=== PATIENT | female | born 1940 | race Caucasian/White ===

== ENCOUNTER 2021-02-17 16:18 | Inpatient (IN) | payer MEDICARE, MEDICAID ==
[~2021-02-17] VITALS: Ht 165.1 cm; Wt 89.0 kg
[2021-02-17] MEDS ORDERED: IOHEXOL-350 100 ML BOTTLE ONE (17:19)
[2021-02-17 17:31] LABS: BASOPHILS % 0.4 % (0.0-2.0); EOSINOPHILS % 2.5 % (0.0-5.0); HEMATOCRIT. 33.7 % (36.0-48.0); LYMPHOCYTES % 22.6 % (20.0-50.0); MEAN CORPUSCULAR HEMOGLOBIN 28.1 pg (28.0-32.0); MEAN CORPUSCULAR VOLUME 85.9 fL (81.0-99.0); MEAN PLATELET VOLUME 9.3 fl (7.4-10.4); MONOCYTES % 14.1 % (2.0-8.0); NEUTROPHILS % 60.4 % (40.0-76.0); PLATELET 107 x1000/uL (130-400); RED BLOOD CELL COUNT 3.92 mill/uL (4.2-5.4); RED CELL DISTRIBUTION WIDTH 17.3 % (11.6-14.6)
[2021-02-17 17:34] LABS: CHLORIDE 102 mEq/L (98-107)
[2021-02-17 17:38] LABS: ETHANOL BLOOD < 10 mg/dL; INR 1.2; PROTHROMBIN TIME 12.4 sec (9.6-11.0)
[2021-02-17 20:38] LABS: CLARITY URINE CLEAR (CLEAR); COLOR URINE YELLOW (YELLOW); KETONES URINE NEGATIVE (NEGATIVE); LEUKOCYTE ESTERASE URINE NEGATIVE (NEGATIVE); NITRITE URINE NEGATIVE (NEGATIVE); OCCULT BLOOD URINE NEGATIVE (NEGATIVE); PH URINE 6.5 (4.5-8.0); PROTEIN URINE NEGATIVE (NEGATIVE); SPECIFIC GRAVITY URINE 1.034 (1.005-1.030); UROBILINOGEN URINE 0.2 E.U./dL (0.2-1.0)
[2021-02-17 20:46] LABS: *BARBITURATES SCREEN URINE NEGATIVE (NEGATIVE)
[2021-02-17 20:47] LABS: *AMPHETAMINES SCREEN URINE NEGATIVE (NEGATIVE); *BENZODIAZEPINES SCREEN URINE NEGATIVE (NEGATIVE); *COCAINE SCREEN URINE NEGATIVE (NEGATIVE); CANNABINOID URINE SCREEN PRESUMTIVE POSITIVE (NEGATIVE); METHADONE URINE SCREEN NEGATIVE (NEGATIVE); OPIATES URINE SCREEN NEGATIVE (NEGATIVE); PHENCYCLIDINE URINE SCREEN NEGATIVE (NEGATIVE)
[2021-02-17] MEDS ORDERED: ASPIRIN 325MG EC TABLET PO NR (21:30)
[2021-02-17 22:33] VITALS: BP 159/70
[2021-02-18] VITALS: BP 159/70
[2021-02-18] MEDS ORDERED: LOSA25TA26 MT (00:13)
[2021-02-18] MEDS ORDERED: LYR25 MT (00:13)
[2021-02-18] MEDS ORDERED: PRIM50TA31 PO (00:13)
[2021-02-18] MEDS ORDERED: GABA-533 MT (00:13)
[2021-02-18] MEDS ORDERED: LEVO25TA7 MT (00:13)
[2021-02-18] MEDS ORDERED: FERR325T6 MT (00:13)
[2021-02-18] MEDS ORDERED: PREG50CA MT (00:13)
[2021-02-18] MEDS ORDERED: DULO20CA18 MT (00:13)
[2021-02-18] MEDS ORDERED: ROPI1TAB14 PO (00:13)
[2021-02-18] MEDS ORDERED: ACETAMINOPHEN 650MG/20.3ML UDC PO PRN (00:45)
[2021-02-18] MEDS ORDERED: CLONIDINE 0.1MG TABLET PO PRN (00:45)
[2021-02-18] MEDS ORDERED: DEXTROSE 50% WATER 50ML SYRINGE IV PRN (00:45)
[2021-02-18] MEDS ORDERED: ONDANSETRON HCL 4MG/2ML INJ IV PRN (00:45)
[2021-02-18] MEDS ORDERED: HYDROCODONE/ACETAMINOPHEN 5/325MG TABLET PO PRN (00:45)
[2021-02-18] MEDS ORDERED: NALOXONE HCL 0.4MG/ML VIAL IV PRN (01:00)
[2021-02-18 04:00] VITALS: BP 148/82
[2021-02-18] MEDS: BLOOD SUGAR DIAGNOSTIC STRIP TEST SCH ×4 (05:40→21:00)
[2021-02-18] MEDS: INSULIN LISPRO 100 UNITS/ML SUBCUT SCH ×4 (07:10→21:00)
[2021-02-18 08:00] VITALS: BP 152/76
[2021-02-18] MEDS: ENOXAPARIN 40MG/0.4ML SYR SUBCUT SCH (09:21)
[2021-02-18] MEDS: ASPIRIN 81MG TABLET PO SCH (09:21)
[2021-02-18 10:33] LABS: BASOPHILS % 0.5 % (0.0-2.0); EOSINOPHILS % 5.1 % (0.0-5.0); HEMATOCRIT. 35.3 % (36.0-48.0); HEMOGLOBIN. 11.4 g/dL (12.0-16.0); LYMPHOCYTES % 34.2 % (20.0-50.0); MEAN CORPUSCULAR HEMOGLOBIN 27.9 pg (28.0-32.0); MEAN CORPUSCULAR VOLUME 86.2 fL (81.0-99.0); MEAN PLATELET VOLUME 9.6 fl (7.4-10.4); MONOCYTES % 10.4 % (2.0-8.0); NEUTROPHILS % 49.8 % (40.0-76.0); PLATELET 108 x1000/uL (130-400); RED BLOOD CELL COUNT 4.09 mill/uL (4.2-5.4)
[2021-02-18 10:36] LABS: CHLORIDE 107 mEq/L (98-107)
[2021-02-18 10:44] LABS: HDL CHOLESTEROL 55 mg/dL (40-59)
[2021-02-18 10:46] LABS: LDL CHOLESTEROL 66 mg/dL (5-100)
[2021-02-18 10:47] LABS: CREATINE KINASE 76 IU/L (26-192); CREATINE KINASE 78 IU/L (26-192)
[2021-02-18 10:52] LABS: CREATINE KINASE MB FRACTION 1.1 ng/mL (0.5-3.6)
[2021-02-18 12:00] VITALS: BP 153/77
[2021-02-18 16:00] VITALS: BP 152/68
[2021-02-18 17:28] LABS: CREATINE KINASE MB FRACTION 1.2 ng/mL (0.5-3.6)
[2021-02-18 20:00] VITALS: BP 156/85
[2021-02-18] MEDS ORDERED: ATORVASTATIN CALCIUM 10MG TABLET PO SCH (21:00)
[2021-02-19] VITALS: BP 158/79
[2021-02-19 04:00] VITALS: BP 136/71
[2021-02-19] MEDS: BLOOD SUGAR DIAGNOSTIC STRIP TEST SCH ×3 (06:36→16:38)
[2021-02-19] MEDS: INSULIN LISPRO 100 UNITS/ML SUBCUT SCH ×3 (06:37→17:34)
[2021-02-19 08:00] VITALS: BP 155/66
[2021-02-19] MEDS: ASPIRIN 81MG TABLET PO SCH (08:54)
[2021-02-19] MEDS: ENOXAPARIN 40MG/0.4ML SYR SUBCUT SCH (08:54)
[2021-02-19] MEDS ORDERED: CLOPIDOGREL 75MG TABLET PO SCH (09:00)
[2021-02-19 12:00] VITALS: BP 132/60
[2021-02-19 16:00] VITALS: BP 142/67
[2021-02-19] MEDS ORDERED: ASPI-1160 PO (18:39)
[2021-02-19] MEDS ORDERED: CLOP75TA15 PO (18:39)
[2021-02-19] MEDS ORDERED: ATOR10TA PO (18:39)
[2021-02-19] MEDS ORDERED: METF-414 MT (18:39)
[2021-02-19 18:41] VITALS: BP 132/66
== END 2021-02-19 20:09 | disposition home health service (06) | DRG 69 ==
LOC: ER 16:18 → 7EST 19:08 → EDBEDREQSVC 19:13 → EDBEDREQ 19:13 → ENRESERVDT 20:51 → ENRESERVTM 20:51
PROVIDERS: ADMIT Internal Medicine; ATTEND Internal Medicine
PROC: 4A10X4Z Monitoring of Central Nervous Electrical Activity, External Approach (ICD-10-PCS; principal; 2021-02-19)
DX: G45.9 Transient cerebral ischemic attack, unspecified (principal); R47.01 Aphasia; E11.9 Type 2 diabetes mellitus without complications; R13.10 Dysphagia, unspecified; R29.705 NIHSS score 5; I34.0 Nonrheumatic mitral (valve) insufficiency; I11.9 Hypertensive heart disease without heart failure; G31.9 Degenerative disease of nervous system, unspecified; R63.5 Abnormal weight gain; Z68.32 Body mass index [BMI] 32.0-32.9, adult
CPT/HCPCS: 36415; 70496; 70498; 70551; 71045; 80048; 80053; 80061; 80305; 80320; 81003; 82550; 82553; 82962; 83036; 84443; 84484; 85025; 93005; 93306; 95816; 97162; 99285; J1650; J1815; Q9967; G0480

== ENCOUNTER 2022-03-06 13:40 | Inpatient (IN) | payer MEDICARE, MEDICAID ==
[~2022-03-06] VITALS: Ht 160 cm; Wt 80.9 kg
[~2022-03-06 13:40] MED LIST: ASPI-1160 PO; ATOR10TA PO; CLOP75TA15 PO; DULO20CA18 MT; FERR325T6 MT; GABA-533 MT; LEVO25TA7 MT; LOSA25TA26 MT; METF-414 MT; PREG50CA MT; PRIM50TA5 PO; ROPI1TAB14 PO
[2022-03-06] MEDS ORDERED: ASPIRIN 81MG TABLET PO ONE (15:45)
[2022-03-06] MEDS ORDERED: LABETALOL HCL VIAL 20 MG/4 ML VIAL IV ONE (15:45)
[2022-03-06] MEDS ORDERED: NITROGLYCERIN OINT 1GM/INCH UDPKT TD ONE (15:45)
[2022-03-06] MEDS ORDERED: FUROSEMIDE 40MG/4ML VIAL IV ONE (15:45)
[2022-03-06 16:15] LABS: BASOPHILS % 0.7 % (0.0-2.0); EOSINOPHILS % 4.8 % (0.0-5.0); HEMATOCRIT. 24.8 % (36.0-48.0); HEMOGLOBIN. 7.9 g/dL (12.0-16.0); LYMPHOCYTES % 20.6 % (20.0-50.0); MEAN CORPUSCULAR HEMOGLOBIN 24.5 pg (28.0-32.0); MEAN CORPUSCULAR VOLUME 77.1 fL (81.0-99.0); MONOCYTES % 12.9 % (2.0-8.0); PLATELET 145 x1000/uL (130-400); RED BLOOD CELL COUNT 3.22 mill/uL (4.2-5.4); RED CELL DISTRIBUTION WIDTH 18.3 % (11.6-14.6)
[2022-03-06 16:33] LABS: CHLORIDE 110 mEq/L (98-107)
[2022-03-06 16:42] LABS: BG BASE EXCESS -2.8 mmol/L (-2.0-2.0); BG CARBOXYHEMOGLOBIN 1.7 % (0.5-1.5); BG FRACTION INSPIRED OXYGEN 21; BG HCO3 ACT 20.9 mmol/L (22.0-26.0); BG METHEMOGLOBIN 0.3 % (0.0-1.5); BG OXYGEN SATURATION 96.9 % (92.0-98.5); BG PCO2 31.9 mmHg (35.0-45.0); BG PH 7.434 (7.350-7.450); BG PO2 85.6 mmHg (75.0-100.0); BG SAMPLE SITE RIGHT BRACHIAL; BG VENT MODE ROOM AIR
[2022-03-06] MEDS ORDERED: FUROSEMIDE 100MG/10ML VIAL IV NR (16:45)
[2022-03-06] MEDS ORDERED: ASPIRIN 81MG TABLET PO NR (16:45)
[2022-03-06] MEDS ORDERED: NITROGLYCERIN OINT 1GM/INCH UDPKT TD NR (16:45)
[2022-03-06] MEDS ORDERED: LABETALOL 5MG/ML SYR 20 MG/4 ML SYRINGE IV NR (16:45)
[2022-03-06] MEDS ORDERED: IPRATROPIUM/ALBUTEROL 0.5-3(2.5)MG/3ML NEB NEB PRN (20:30)
[2022-03-06] MEDS ORDERED: ONDANSETRON HCL 4MG/2ML INJ IV PRN (20:30)
[2022-03-06] MEDS ORDERED: LOSARTAN POTASSIUM 50 MG TABLET PO SCH (20:30)
[2022-03-06] MEDS ORDERED: GUAIFENESIN 200MG/10ML SUGAR FREE UDC PO PRN (20:30)
[2022-03-06] MEDS ORDERED: DEXTROSE 50% WATER 50ML SYRINGE IV PRN (20:30)
[2022-03-06] MEDS ORDERED: KETOROLAC 15MG/ML VIAL IV PRN (20:30)
[2022-03-06] MEDS ORDERED: DOCUSATE SODIUM 100MG CAPSULE PO PRN (20:30)
[2022-03-06] MEDS ORDERED: NITROGLYCERIN 0.4MG TABLET SL SL PRN (20:30)
[2022-03-06] MEDS ORDERED: ENOXAPARIN 40MG/0.4ML SYR SUBCUT SCH (20:30)
[2022-03-06] MEDS ORDERED: MAGNESIUM/ALUMINUM HYDROXIDE/SIMETHICONE 30ML UDC PO PRN (20:30)
[2022-03-06] MEDS ORDERED: ACETAMINOPHEN 325MG TABLET PO PRN ×2 (20:30)
[2022-03-06] MEDS ORDERED: CLONIDINE 0.1MG TABLET PO PRN (20:30)
[2022-03-06] MEDS: ENOXAPARIN 30MG/0.3ML SYR SUBCUT SCH (21:00)
[2022-03-06] MEDS ORDERED: ZOLPIDEM TARTRATE 5MG TABLET PO PRN (21:00)
[2022-03-06] MEDS: INSULIN LISPRO 100 UNITS/ML SUBCUT SCH (21:00)
[2022-03-06] MEDS: BLOOD SUGAR DIAGNOSTIC STRIP TEST SCH (21:19)
[2022-03-06] MEDS: SPIRONOLACTONE 25MG TABLET PO SCH (21:23)
[2022-03-06] MEDS: FAMOTIDINE 20MG TABLET PO SCH (21:24)
[2022-03-06] MEDS: FUROSEMIDE 40MG/4ML VIAL IVP SCH (21:24)
[2022-03-06 21:27] LABS: T4 FREE 1.12 ng/dL (0.76-1.46)
[2022-03-06 21:51] LABS: VITAMIN B12 SERUM 1768 pg/mL (211-911)
[2022-03-06 22:01] LABS: CREATINE KINASE MB FRACTION 1.6 ng/mL (0.5-3.6)
[2022-03-07 01:04] VITALS: BP 114/80
[2022-03-07] MEDS ORDERED: LOSA50TA41 MT (01:13)
[2022-03-07] MEDS ORDERED: LEVO100T9 MT (01:13)
[2022-03-07] MEDS ORDERED: METF-414 MT (01:14)
[2022-03-07] MEDS ORDERED: MEGE20TA4 PO (01:17)
[2022-03-07] MEDS ORDERED: PANT40TA51 MT (01:17)
[2022-03-07] MEDS ORDERED: SITA50TA3 MT (01:17)
[2022-03-07 04:00] VITALS: BP 110/43
[2022-03-07 06:16] LABS: MEAN CORPUSCULAR HEMOGLOBIN 24.4 pg (28.0-32.0); MEAN CORPUSCULAR VOLUME 76.2 fL (81.0-99.0); MEAN PLATELET VOLUME 8.4 fl (7.4-10.4); PLATELET 133 x1000/uL (130-400); RED BLOOD CELL COUNT 2.87 mill/uL (4.2-5.4)
[2022-03-07 06:37] LABS: HEMATOCRIT. 21.9 % (36.0-48.0)
[2022-03-07 06:40] LABS: CHLORIDE 109 mEq/L (98-107)
[2022-03-07 06:46] LABS: CREATINE KINASE MB FRACTION 1.6 ng/mL (0.5-3.6)
[2022-03-07] MEDS: FUROSEMIDE 40MG/4ML VIAL IVP SCH ×2 (07:07→16:55)
[2022-03-07] MEDS: BLOOD SUGAR DIAGNOSTIC STRIP TEST SCH ×4 (07:40→21:37)
[2022-03-07 08:00] VITALS: BP 116/52
[2022-03-07] MEDS: INSULIN LISPRO 100 UNITS/ML SUBCUT SCH ×4 (08:10→21:00)
[2022-03-07] MEDS ORDERED: MEGESTROL ACETATE 20MG TABLET PO SCH (09:00)
[2022-03-07] MEDS ORDERED: POTASSIUM CHLORIDE 20MEQ TABLET SR PO NR (09:00)
[2022-03-07] MEDS ORDERED: MEDICATION NOT ON FORMULARY EA (Ferrous Sulfate 1 TAB) MT SCH (09:00)
[2022-03-07] MEDS: ASPIRIN 325MG EC TABLET PO SCH (09:30)
[2022-03-07] MEDS: GABAPENTIN 400MG CAPSULE PO SCH ×3 (09:30→16:55)
[2022-03-07] MEDS: FERROUS SULFATE 325MG TABLET PO SCH (09:30)
[2022-03-07] MEDS: SPIRONOLACTONE 25MG TABLET PO SCH ×2 (09:31→21:36)
[2022-03-07] MEDS: LEVOTHYROXINE SODIUM 100MCG TABLET PO SCH (09:31)
[2022-03-07] MEDS: LOSARTAN POTASSIUM 50 MG TABLET PO SCH (09:31)
[2022-03-07] MEDS: DULOXETINE HCL 20MG DR CAPSULE PO SCH (09:31)
[2022-03-07 12:00] VITALS: BP 135/58
[2022-03-07 16:00] VITALS: BP 108/49
[2022-03-07 17:21] LABS: HEMATOCRIT 23.8 % (36.0-48.0); HEMOGLOBIN 7.6 g/dL (12.0-16.0)
[2022-03-07 17:33] LABS: TOTAL IRON BINDING CAPACITY 464 ug/dL (250-450)
[2022-03-07 17:46] LABS: FERRITIN 18 ng/mL (10-291)
[2022-03-07 19:50] LABS: PLATELET ESTIMATE NORMAL
[2022-03-07 20:00] VITALS: BP 114/44
[2022-03-07] MEDS: ATORVASTATIN CALCIUM 10MG TABLET PO SCH (21:36)
[2022-03-07] MEDS: ENOXAPARIN 30MG/0.3ML SYR SUBCUT SCH (21:36)
[2022-03-07] MEDS: PRIMIDONE 50MG TABLET PO SCH (21:36)
[2022-03-07] MEDS: FAMOTIDINE 20MG TABLET PO SCH (21:37)
[2022-03-07] MEDS: ROPINIROLE HCL 1MG TABLET PO SCH (21:50)
[2022-03-08] VITALS: BP 122/55
[2022-03-08 04:00] VITALS: BP 115/57
[2022-03-08 06:26] LABS: HEMATOCRIT 25.2 % (36.0-48.0); HEMOGLOBIN 8.1 g/dL (12.0-16.0); MEAN CORPUSCULAR HEMOGLOBIN 25.5 pg (28.0-32.0); MEAN CORPUSCULAR VOLUME 78.9 fL (81.0-99.0); PLATELET 135 x1000/uL (130-400); RED BLOOD CELL COUNT 3.19 mill/uL (4.2-5.4); RED CELL DISTRIBUTION WIDTH 19.6 % (11.6-14.6)
[2022-03-08 07:33] LABS: CHLORIDE 110 mEq/L (98-107)
[2022-03-08 07:39] LABS: PHOSPHORUS 4.2 mg/dL (2.5-4.9)
[2022-03-08] MEDS: BLOOD SUGAR DIAGNOSTIC STRIP TEST SCH ×4 (07:40→21:30)
[2022-03-08 08:00] VITALS: BP 138/76
[2022-03-08] MEDS: INSULIN LISPRO 100 UNITS/ML SUBCUT SCH ×4 (08:10→21:29)
[2022-03-08] MEDS ORDERED: MEGESTROL ACETATE 20MG TABLET PO SCH (09:00)
[2022-03-08] MEDS: LEVOTHYROXINE SODIUM 100MCG TABLET PO SCH (09:01)
[2022-03-08] MEDS: ASPIRIN 325MG EC TABLET PO SCH (09:01)
[2022-03-08] MEDS: DULOXETINE HCL 20MG DR CAPSULE PO SCH (09:01)
[2022-03-08] MEDS: SPIRONOLACTONE 25MG TABLET PO SCH ×2 (09:02→21:28)
[2022-03-08] MEDS: LOSARTAN POTASSIUM 50 MG TABLET PO SCH (09:02)
[2022-03-08] MEDS: GABAPENTIN 400MG CAPSULE PO SCH ×3 (09:02→17:32)
[2022-03-08] MEDS: FERROUS SULFATE 325MG TABLET PO SCH (09:02)
[2022-03-08] MEDS: FUROSEMIDE 40MG/4ML VIAL IVP SCH ×2 (09:02→17:32)
[2022-03-08 12:00] VITALS: BP 140/86
[2022-03-08 16:00] VITALS: BP 136/62
[2022-03-08 20:00] VITALS: BP 139/46
[2022-03-08] MEDS: FAMOTIDINE 20MG TABLET PO SCH (21:27)
[2022-03-08] MEDS: ATORVASTATIN CALCIUM 10MG TABLET PO SCH (21:27)
[2022-03-08] MEDS: ROPINIROLE HCL 1MG TABLET PO SCH (21:27)
[2022-03-08] MEDS: ENOXAPARIN 30MG/0.3ML SYR SUBCUT SCH (21:30)
[2022-03-08] MEDS: PRIMIDONE 50MG TABLET PO SCH (21:36)
[2022-03-09] VITALS: BP 133/53
[2022-03-09 04:00] VITALS: BP 128/58
[2022-03-09] MEDS: LEVOTHYROXINE SODIUM 100MCG TABLET PO SCH (06:42)
[2022-03-09] MEDS: FUROSEMIDE 40MG/4ML VIAL IVP SCH (06:42)
[2022-03-09] MEDS: BLOOD SUGAR DIAGNOSTIC STRIP TEST SCH ×2 (06:49→11:52)
[2022-03-09] MEDS: INSULIN LISPRO 100 UNITS/ML SUBCUT SCH ×2 (07:04→11:52)
[2022-03-09 08:00] VITALS: BP 145/61
[2022-03-09] MEDS: LOSARTAN POTASSIUM 50 MG TABLET PO SCH (08:26)
[2022-03-09] MEDS: FERROUS SULFATE 325MG TABLET PO SCH (08:26)
[2022-03-09] MEDS: GABAPENTIN 400MG CAPSULE PO SCH ×2 (08:26→12:31)
[2022-03-09] MEDS: DULOXETINE HCL 20MG DR CAPSULE PO SCH (08:27)
[2022-03-09] MEDS: SPIRONOLACTONE 25MG TABLET PO SCH (08:27)
[2022-03-09] MEDS: ASPIRIN 325MG EC TABLET PO SCH (08:27)
[2022-03-09 08:40] LABS: HEMATOCRIT 27.8 % (36.0-48.0); MEAN CORPUSCULAR HEMOGLOBIN 25.4 pg (28.0-32.0); MEAN CORPUSCULAR VOLUME 78.4 fL (81.0-99.0); PLATELET 149 x1000/uL (130-400); RED BLOOD CELL COUNT 3.55 mill/uL (4.2-5.4); RED CELL DISTRIBUTION WIDTH 19.6 % (11.6-14.6)
[2022-03-09 09:17] LABS: CHLORIDE 107 mEq/L (98-107)
[2022-03-09 09:21] LABS: PHOSPHORUS 3.4 mg/dL (2.5-4.9)
[2022-03-09] MEDS ORDERED: COR3 MT (09:41)
[2022-03-09] MEDS ORDERED: FURO-151 MT (09:41)
[2022-03-09] MEDS ORDERED: LOSA100T32 MT (09:41)
[2022-03-09] MEDS ORDERED: SPIR25TA MT (09:41)
[2022-03-09] MEDS ORDERED: FAMO-135 MT (09:41)
[2022-03-09] MEDS ORDERED: POTASSIUM CHLORIDE 20MEQ TABLET SR PO NR (09:45)
[2022-03-09 10:23] VITALS: BP 136/67
[2022-03-09 12:00] VITALS: BP 136/67
== END 2022-03-09 13:25 | disposition home or self-care (01) | DRG 291 ==
LOC: ER 13:40 → 7WST 20:03 → SUPCPDRO 20:21
PROVIDERS: ADMIT Internal Medicine; ATTEND Internal Medicine
PROC: 30233N1 Transfusion of Nonautologous Red Blood Cells into Peripheral Vein, Percutaneous Approach (ICD-10-PCS; principal; 2022-03-07)
DX: I11.0 Hypertensive heart disease with heart failure (principal); I50.31 Acute diastolic (congestive) heart failure; M94.0 Chondrocostal junction syndrome [Tietze]; D50.9 Iron deficiency anemia, unspecified; E78.5 Hyperlipidemia, unspecified; Z20.822 Contact with and (suspected) exposure to COVID-19; E03.9 Hypothyroidism, unspecified; E11.9 Type 2 diabetes mellitus without complications; R25.1 Tremor, unspecified; Z86.73 Personal history of transient ischemic attack (TIA), and cerebral infarction without residual deficits; Z91.81 History of falling
CPT/HCPCS: 36415; 36600; 71045; 80048; 80053; 80061; 82270; 82375; 82550; 82553; 82607; 82728; 82746; 82805; 82962; 83036; 83540; 83550; 83735; 83880; 84100; 84145; 84439; 84443; 84484; 85014; 85018; 85025; 85027; 85379; 86850; 86900; 86920; 87426; 93005; 93306; 93970; 97162; 97166; 99285; C1893; C9803; J1650; J1815; J1940; J3490; P9016

== ENCOUNTER 2022-04-09 16:19 | Inpatient (IN) | payer MEDICARE, MEDICAID ==
[~2022-04-09] VITALS: Ht 165.1 cm; Wt 88.0 kg
[~2022-04-09 16:19] MED LIST changes: -ASPI-1160 PO; +COR3 MT; +FAMO-135 MT; +FURO-151 MT; +LEVO100T9 MT; -LEVO25TA7 MT; +LOSA100T32 MT; -LOSA25TA26 MT; -PREG50CA MT; +SITA50TA3 MT; +SPIR25TA MT
[2022-04-09] MEDS ORDERED: ACETAMINOPHEN 325MG TABLET PO ONE (16:30)
[2022-04-09] MEDS ORDERED: KETOROLAC 15MG/ML VIAL IM ONE (16:30)
[2022-04-09 21:07] LABS: CHLORIDE 100 mEq/L (98-107)
[2022-04-09 21:10] LABS: INR 1.2; PROTHROMBIN TIME 12.5 sec (9.6-11.0)
[2022-04-09 21:13] LABS: BASOPHILS % 0.4 % (0.0-2.0); EOSINOPHILS % 5.1 % (0.0-5.0); HEMATOCRIT. 33.7 % (36.0-48.0); HEMOGLOBIN. 11.5 g/dL (12.0-16.0); LYMPHOCYTES % 20.7 % (20.0-50.0); MEAN CORPUSCULAR HEMOGLOBIN 27.1 pg (28.0-32.0); MEAN CORPUSCULAR VOLUME 79.5 fL (81.0-99.0); MEAN PLATELET VOLUME 9.1 fl (7.4-10.4); MONOCYTES % 11.2 % (2.0-8.0); NEUTROPHILS % 62.6 % (40.0-76.0); PLATELET 96 x1000/uL (130-400); RED BLOOD CELL COUNT 4.23 mill/uL (4.2-5.4); RED CELL DISTRIBUTION WIDTH 25.2 % (11.6-14.6)
[2022-04-09 21:49] LABS: PLATELET ESTIMATE DECREASED
[2022-04-09] MEDS ORDERED: CLONIDINE 0.1MG TABLET PO PRN (22:45)
[2022-04-09] MEDS ORDERED: ACETAMINOPHEN 325MG TABLET PO PRN (22:45)
[2022-04-09] MEDS ORDERED: DEXTROSE 50% WATER 50ML SYRINGE IV PRN (23:15)
[2022-04-09] MEDS: BLOOD SUGAR DIAGNOSTIC STRIP TEST SCH (23:30)
[2022-04-09] MEDS: CARVEDILOL 3.125 MG TABLET PO SCH (23:30)
[2022-04-10] MEDS: HYDROCODONE/ACETAMINOPHEN 5/325MG TABLET PO PRN ×2 (03:35→12:46)
[2022-04-10 05:17] LABS: BASOPHILS % 0.3 % (0.0-2.0); EOSINOPHILS % 6.7 % (0.0-5.0); HEMATOCRIT. 28.5 % (36.0-48.0); HEMOGLOBIN. 9.5 g/dL (12.0-16.0); LYMPHOCYTES % 24.2 % (20.0-50.0); MEAN CORPUSCULAR HEMOGLOBIN 26.5 pg (28.0-32.0); MEAN CORPUSCULAR VOLUME 79.5 fL (81.0-99.0); MEAN PLATELET VOLUME 8.8 fl (7.4-10.4); NEUTROPHILS % 56.8 % (40.0-76.0); PLATELET 78 x1000/uL (130-400); RED BLOOD CELL COUNT 3.58 mill/uL (4.2-5.4); RED CELL DISTRIBUTION WIDTH 25.5 % (11.6-14.6)
[2022-04-10 05:38] LABS: CHLORIDE 105 mEq/L (98-107)
[2022-04-10 05:47] LABS: CREATINE KINASE 102 IU/L (26-192); CREATINE KINASE MB FRACTION 1.9 ng/mL (0.5-3.6)
[2022-04-10] MEDS: BLOOD SUGAR DIAGNOSTIC STRIP TEST SCH ×4 (06:37→20:38)
[2022-04-10] MEDS: INSULIN LISPRO 100 UNITS/ML SUBCUT SCH ×4 (06:37→20:55)
[2022-04-10] MEDS: LEVOTHYROXINE SODIUM 100MCG TABLET PO SCH (06:45)
[2022-04-10 08:00] VITALS: BP 124/53
[2022-04-10 08:40] VITALS: BP 124/53
[2022-04-10] MEDS: FUROSEMIDE 40MG TABLET PO SCH (09:00)
[2022-04-10] MEDS: CARVEDILOL 3.125 MG TABLET PO SCH ×2 (09:00→16:31)
[2022-04-10] MEDS: FAMOTIDINE 20MG TABLET PO SCH ×2 (09:00→17:12)
[2022-04-10] MEDS: METFORMIN HCL 500MG TABLET PO SCH ×2 (09:00→17:12)
[2022-04-10] MEDS: LOSARTAN POTASSIUM 100 MG TABLET PO SCH (09:00)
[2022-04-10] MEDS: GABAPENTIN 400MG CAPSULE PO SCH ×3 (09:00→17:12)
[2022-04-10] MEDS: SPIRONOLACTONE 25MG TABLET PO SCH (09:00)
[2022-04-10] MEDS: DULOXETINE HCL 20MG DR CAPSULE PO SCH (09:00)
[2022-04-10 09:20] VITALS: BP 124/53
[2022-04-10 16:40] LABS: CREATINE KINASE MB FRACTION 1.2 ng/mL (0.5-3.6)
[2022-04-10] MEDS ORDERED: NALOXONE HCL 0.4MG/ML VIAL IV PRN (17:30)
[2022-04-10 20:00] VITALS: BP 120/50
[2022-04-10] MEDS: ATORVASTATIN CALCIUM 10MG TABLET PO SCH (20:38)
[2022-04-10] MEDS: PRIMIDONE 50MG TABLET PO SCH (20:38)
[2022-04-10] MEDS: ROPINIROLE HCL 1MG TABLET PO SCH (20:38)
[2022-04-11] VITALS: BP 111/50
[2022-04-11 04:00] VITALS: BP 128/48
[2022-04-11] MEDS: LEVOTHYROXINE SODIUM 100MCG TABLET PO SCH (06:32)
[2022-04-11] MEDS: BLOOD SUGAR DIAGNOSTIC STRIP TEST SCH ×4 (06:38→21:00)
[2022-04-11] MEDS: INSULIN LISPRO 100 UNITS/ML SUBCUT SCH ×4 (07:50→22:40)
[2022-04-11 08:43] LABS: BASOPHILS % 0.4 % (0.0-2.0); HEMATOCRIT. 29.1 % (36.0-48.0); HEMOGLOBIN. 9.5 g/dL (12.0-16.0); LYMPHOCYTES % 28.4 % (20.0-50.0); MEAN CORPUSCULAR VOLUME 80.1 fL (81.0-99.0); MEAN PLATELET VOLUME 9.2 fl (7.4-10.4); MONOCYTES % 14.3 % (2.0-8.0); NEUTROPHILS % 51.9 % (40.0-76.0); PLATELET 81 x1000/uL (130-400); RED BLOOD CELL COUNT 3.63 mill/uL (4.2-5.4); RED CELL DISTRIBUTION WIDTH 25.5 % (11.6-14.6)
[2022-04-11] MEDS: FUROSEMIDE 40MG TABLET PO SCH (08:47)
[2022-04-11] MEDS: SPIRONOLACTONE 25MG TABLET PO SCH (08:48)
[2022-04-11] MEDS: FAMOTIDINE 20MG TABLET PO SCH ×2 (08:48→17:37)
[2022-04-11] MEDS: METFORMIN HCL 500MG TABLET PO SCH ×2 (08:49→17:38)
[2022-04-11] MEDS: DULOXETINE HCL 20MG DR CAPSULE PO SCH (08:49)
[2022-04-11] MEDS: LOSARTAN POTASSIUM 100 MG TABLET PO SCH (08:49)
[2022-04-11] MEDS: GABAPENTIN 400MG CAPSULE PO SCH ×3 (08:49→17:37)
[2022-04-11] MEDS: CARVEDILOL 3.125 MG TABLET PO SCH ×2 (08:56→17:37)
[2022-04-11 09:26] LABS: CHLORIDE 106 mEq/L (98-107)
[2022-04-11] MEDS: ROPINIROLE HCL 1MG TABLET PO SCH (22:14)
[2022-04-11] MEDS: ATORVASTATIN CALCIUM 10MG TABLET PO SCH (22:14)
[2022-04-11] MEDS: PRIMIDONE 50MG TABLET PO SCH (22:14)
[2022-04-12 05:34] LABS: BASOPHILS % 0.3 % (0.0-2.0); EOSINOPHILS % 5.5 % (0.0-5.0); HEMATOCRIT. 27.9 % (36.0-48.0); HEMOGLOBIN. 9.2 g/dL (12.0-16.0); LYMPHOCYTES % 29.5 % (20.0-50.0); MEAN CORPUSCULAR HEMOGLOBIN 26.4 pg (28.0-32.0); MEAN CORPUSCULAR VOLUME 80.3 fL (81.0-99.0); MEAN PLATELET VOLUME 9.4 fl (7.4-10.4); MONOCYTES % 14.7 % (2.0-8.0); PLATELET 79 x1000/uL (130-400); RED BLOOD CELL COUNT 3.48 mill/uL (4.2-5.4)
[2022-04-12 06:21] LABS: CHLORIDE 105 mEq/L (98-107)
[2022-04-12] MEDS: BLOOD SUGAR DIAGNOSTIC STRIP TEST SCH (06:21)
[2022-04-12] MEDS: LEVOTHYROXINE SODIUM 100MCG TABLET PO SCH (06:51)
[2022-04-12] MEDS: INSULIN LISPRO 100 UNITS/ML SUBCUT SCH (07:50)
[2022-04-12 08:00] VITALS: BP 113/51
[2022-04-12] MEDS: CARVEDILOL 3.125 MG TABLET PO SCH (09:00)
[2022-04-12] MEDS: METFORMIN HCL 500MG TABLET PO SCH (09:13)
[2022-04-12] MEDS: FAMOTIDINE 20MG TABLET PO SCH (09:13)
[2022-04-12] MEDS: FUROSEMIDE 40MG TABLET PO SCH (09:13)
[2022-04-12] MEDS: LOSARTAN POTASSIUM 100 MG TABLET PO SCH (09:16)
[2022-04-12] MEDS: GABAPENTIN 400MG CAPSULE PO SCH (09:16)
[2022-04-12] MEDS: DULOXETINE HCL 20MG DR CAPSULE PO SCH (09:17)
[2022-04-12] MEDS: SPIRONOLACTONE 25MG TABLET PO SCH (09:17)
[2022-04-12] MEDS ORDERED: IBUP-2028 PO (10:42)
[2022-04-12 11:10] VITALS: BP 113/51
[2022-04-12 12:00] VITALS: BP 116/50
== END 2022-04-12 12:35 | disposition home health service (06) | DRG 552 ==
LOC: ER 16:19 → EDBEDREQ 21:27 → EDBEDREQTM 21:27 → MICUSO 23:28 → 6EST 04-10 08:30
PROVIDERS: ADMIT Internal Medicine; ATTEND Internal Medicine
DX: S32.019A Unspecified fracture of first lumbar vertebra, initial encounter for closed fracture (principal); I50.32 Chronic diastolic (congestive) heart failure; D50.9 Iron deficiency anemia, unspecified; D69.6 Thrombocytopenia, unspecified; E11.9 Type 2 diabetes mellitus without complications; F32.A Depression, unspecified; I35.0 Nonrheumatic aortic (valve) stenosis; I11.0 Hypertensive heart disease with heart failure; I25.10 Atherosclerotic heart disease of native coronary artery without angina pectoris; M47.819 Spondylosis without myelopathy or radiculopathy, site unspecified; E78.00 Pure hypercholesterolemia, unspecified; M19.90 Unspecified osteoarthritis, unspecified site; M48.061 Spinal stenosis, lumbar region without neurogenic claudication; R79.1 Abnormal coagulation profile; E78.5 Hyperlipidemia, unspecified; E03.9 Hypothyroidism, unspecified; Z86.73 Personal history of transient ischemic attack (TIA), and cerebral infarction without residual deficits; Z79.899 Other long term (current) drug therapy; Z79.84 Long term (current) use of oral hypoglycemic drugs; Z79.02 Long term (current) use of antithrombotics/antiplatelets; W01.0XXA Fall on same level from slipping, tripping and stumbling without subsequent striking against object, initial encounter; Y93.H2 Activity, gardening and landscaping; Y92.009 Unspecified place in unspecified non-institutional (private) residence as the place of occurrence of the external cause; Y99.8 Other external cause status
CPT/HCPCS: 36415; 72131; 72148; 80053; 82550; 82553; 82962; 83036; 84484; 85025; 85379; 93970; 97162; 97166; 99285; J1815; J1885